=== PATIENT | female | born 1945 | race Caucasian/White ===

== ENCOUNTER 2018-11-24 14:47 | Inpatient (IN) ==
[2018-11-24 16:01] LABS: INFLUENZA A NEGATIVE (NEGATIVE); INFLUENZA B NEGATIVE (NEGATIVE)
--- NOTE | 2018-11-24 17:56 | Diag Imaging Result Doc PS360 ---
EXAM: CHEST-2 VIEWS HISTORY: cough TECHNIQUE: Chest two views COMPARISON: None. FINDINGS: The lungs are well expanded. The heart is not enlarged. The vessels are not distended. There are no infiltrates. No pleural effusions. There is a granuloma in the left lower lobe. Moderate scoliosis. 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 IMPRESSION: No pneumonia. Electronically signed by Kevon Dixon 11/24/2018 5:53 PM
[2018-11-24 18:08] LABS: BASO# 0.02 X1000 (0.0-0.2); BASO% 0.1 % (0.0-0.8); HEMATOCRIT 35.5 % (37.0-47.0); HEMOGLOBIN 12.2 g/dL (12.0-16.0); IMM GRAN# 0.17 X1000 (0.0-0.04); IMM GRAN% 1.2 % (0.0-0.5); LYMPH% 5.6 % (20.5-51.1); MCH 31.6 PG (27-31); MCHC 34.4 g/dL (33-37); MONO% 7.1 % (1.7-9.3); MPV 9.5 FL (7.4-10.4); NEUT# 12.17 X1000 (1.4-6.5); PLT 123 X1000 (130-400); RBC 3.86 XMIL (4.2-5.4); RDW 14.1 % (11.5-14.5); WBC 14.16 X1000 (4.8-10.8)
[2018-11-24 18:23] LABS: ALBUMIN 3.9 g/dL (3.5-5.0); CREATININE 1.5 mg/dL (0.5-0.9); TOTAL BILIRUBIN 1.7 mg/dL (0.20-1.00); TOTAL PROTEIN 6.2 g/dL (6.3-8.3)
[2018-11-24 18:40] LABS: CK INDEX 2.1 (0.0-2.5); CK-MB 7.44 ng/mL (0.0-5.0)
--- NOTE | 2018-11-24 18:47 | PROVIDER DOCUMENTATION ---
This chart was entered by Kira Moody Scribe, acting as scribe for Mehrdad Diaz MD. HPI-General Adult - General Source: patient - History of Present Illness -Gen Adult Nature of Presenting Problems: 72yof with hx of HTN, seizures, and thyroid disease c/o LUE pain, chills, cough , sore throat, sinus congestion/drainage, body aches, headache, and constipation for 3-4 days. She reports she went to a clinic today and was told to come to the ED. She denies fever, nause, vomiting, diarrhea, cp, and sob. The patient's is at bedside. Location of Pain/Injury: reports: upper extremity (LUE) Pain Radiation: reports: no radiation Quality of Pain: reports: aching Severity: reports: mild Onset/Duration: reports: 3 days ago, 4 days ago Timing: reports: still present, intermittent, constant Context/Activities at Onset: reports: none Modifying Factors: improves with: nothing Associated Symptoms: reports: cough, headaches, muscle aches, sinus congestion/ drainage, other (sore throat, LUE pain). denies: chest pain, diarrhea, nausea, shortness of breath, vomiting Similar Symptoms Previously?: No Recently seen or treated by another doctor?: Yes (pt reports seen at a clinic today ) <Mehrdad Diaz - Last Filed: 11/24/18 18:46> <Kalia Brooks - Last Filed: 11/24/18 21:04> - General Chief Complaint: Flu Symptoms Stated Complaint: FEVER/DEHYDRATED/HYPOTENSION Time Seen by Provider: 11/24/18 16:55 Allergies/Adverse Reactions: Patient Allergies Allergy/AdvReac Type Severity Reaction Status Date / Time codeine AdvReac makes pt Verified 11/24/18 14:58 jittery Home Medications: Home Medication List Medication Instructions Recorded Confirmed Last Taken Type Chrom Bryce/Brindal Marni [Garcinia 1 tab PO DAILY 05/07/15 11/08/17 05/10/15 07: 30 History Cambogia Tablet] 1 Diphenhydramine [Benadryl] 25 mg PO QHS 05/07/15 11/08/17 05/10/15 22:30 History 25 Lisinopril/Hydrochlorothiazide 1 each PO DAILY 05/07/15 11/08/17 05/11/15 07:30 History [Lisinopril-Hctz 20-25 mg Tab] 1 Lorazepam 0.25 mg PO HS 05/07/15 11/08/17 05/10/15 22:30 History 0.25 Sertraline [Zoloft] 50 mg PO DAILY 05/07/15 11/08/17 05/11/15 07:30 History 50 Thyroid,Pork [[place] Thyroid] 60 mg PO DAILY 05/07/15 11/08/17 05/11/15 07:30 History 60 Vits A,C,E/Lutein/Minerals 1 each PO DAILY 05/07/15 11/08/17 05/10/15 07:30 History [Ocuvite with Lutein Tablet] 1 Prednisone 20 mg PO DAILY #5 tab 11/08/17 Unknown Rx Tramadol HCl [Ultram] 50 mg PO Q6-8H PRN PRN #20 tab 11/08/17 Unknown Rx Review of Systems - Adult - REVIEW OF SYSTEMS - ADULT Constitutional: reports: chills. denies: fever Eyes: denies: discharge, dry eyes Ears, Nose, Mouth & Throat: reports: throat pain, other (sinus congestion/ drainage). denies: ear discharge, ear pain Cardiovascular: denies: chest pain, palpitations Respiratory: reports: cough. denies: shortness of breath Gastrointestinal: reports: constipation. denies: abdominal pain, diarrhea, nausea, vomiting Genitourinary: denies: dysuria, hematuria Musculoskeletal: reports: muscle aches (body aches), other (LUE pain). denies: back pain Integumentary: reports: no symptoms reported Neurological: reports: headache/migraines. denies: dizziness/vertigo Psychiatric: reports: no symptoms reported Endocrine: reports: no symptoms reported Hematologic/Lymphatic: reports: no symptoms reported Allergic/Immunologic: reports: no symptoms reported All Other Systems: Reviewed and Negative <Mehrdad Diaz - Last Filed: 11/24/18 18:46> Past History - Adult - PAST MEDICAL HISTORY-ADULT Review of Records: reports: Old Records Reviewed, Nursing Assessment Review, Medications Reviewed Major Childhood Illnesses: reports: denies history Cardiovascular: reports: HTN Endocrine/Immune: reports: thyroid disorder - PRIOR SURGERIES/PROCEDURES Surgical/Procedure History: reports: orthopedic (extremity) - IMMUNIZATION STATUS Childhood Immunizations: See Nurse Assessment Flu Vaccine: See Nurse Assessment - FAMILY HISTORY Family History: reviewed, not pertinent - SOCIAL HISTORY Smoking: non-smoker Substance Use: alcohol Living Situation: family <Mehrdad Diaz - Last Filed: 11/24/18 18:46> Physical Exam-General - PHYSICAL EXAM-ADULT Initial Vital Signs Reviewed: Yes - CONSTITUTIONAL General Appearance: alert, no apparent distress - EYES Eyes: PERRL/EOMI, pink conjunctivae - HEAD, EARS, NOSE, MOUTH & THROAT HENMT: moist mucous membranes, TMs normal - NECK Neck: non-tender, supple - RESPIRATORY Respiratory: chest non-tender, lungs clear, normal breath sounds, no pleuratic chest pain, no respiratory distress, no accessory muscle use - CARDIOVASCULAR Cardiovascular: regular rate, rhythm, no murmur - MUSCULOSKELETAL Extremity: no pedal edema, tenderness (LUE), other (limited range of motion LUE) - SKIN Integumentary: normal color, warm/dry - NEUROLOGIC Neurologic: grossly normal, no motor/sensory deficits - PSYCHIATRIC Psych/Mental Status: normal mood/affect, normal thought content, normal thought process, oriented x 3 <Mehrdad Diaz - Last Filed: 11/24/18 18:46> Progress - PLAN OF CARE/RESULTS Progress/Plan/Lab Results: Vital Signs - 8 hr 11/24/18 14:53 Temperature 97.4 F L Pulse Rate 83 Respiratory Rate 16 Blood Pressure 99/59 O2 Sat by Pulse Oximetry 100 Laboratory Results - last 24 hr 11/24/18 15:00 Influenza A (Rapid) NEGATIVE Influenza B (Rapid) NEGATIVE Orders Category Date Time Status Flu [INFLUENZA SCREEN PL] Stat Lab 11/24/18 15:00 Completed <Mehrdad Diaz - Last Filed: 11/24/18 18:46> - PLAN OF CARE/RESULTS Progress/Plan/Lab Results: Vital Signs - 8 hr 11/24/18 14:53 Temperature 97.4 F L Pulse Rate 83 Respiratory Rate 16 Blood Pressure 99/59 O2 Sat by Pulse Oximetry 100 Laboratory Results - last 24 hr 11/24/18 11/24/18 11/24/18 15:00 17:55 17:55 WBC 14.16 H RBC 3.86 L Hgb 12.2 Hct 35.5 L MCV 92.0 MCH 31.6 H MCHC 34.4 RDW Std Deviation 14.1 Plt Count 123 L MPV 9.5 Immature Gran % (Auto) 1.2 H Neut % (Auto) 86.0 H Lymph % (Auto) 5.6 L [place] % (Auto) 7.1 Eos % (Auto) 0.0 Baso % (Auto) 0.1 Immature Gran # (Auto) 0.17 H Neut # (Auto) 12.17 H Lymph # (Auto) 0.80 L [place] # (Auto) 1.00 H Eos # (Auto) 0.00 Baso # (Auto) 0.02 Segmented Neutrophils Not Reportable Sodium 134 L Potassium 3.0 L Chloride 91 L Carbon Dioxide 27 Anion Gap 17 BUN 30 H Creatinine 1.5 H Estimated GFR/1.73 m2 34 BUN/Creatinine Ratio 20 Glucose 94 Calculated Osmolality 274 Calcium 9.0 Total Bilirubin 1.70 H AST 339 H ALT 300 H Alkaline Phosphatase 314 H Creatine Kinase Creatine Kinase Index CK-MB (CK-2) Troponin T Total Protein 6.2 L Albumin 3.9 Globulin 2.0 Albumin/Globulin Ratio 2.0 Plasma Lactate Urine Source Urine Color Urine Clarity Urine pH Ur Specific [place] Urine Protein Urine Ketones Urine Blood Urine Nitrite Urine Bilirubin Urine Urobilinogen Urine Microscopic RBC Urine WBC Urine Microscopic WBC Ur Epithelial Cells Urine Crystals Urine Bacteria Urine Casts Urine Yeast Urine Glucose Influenza A (Rapid) NEGATIVE Influenza B (Rapid) NEGATIVE Group A Strep Rapid 11/24/18 11/24/18 11/24/18 17:55 17:55 17:55 WBC RBC Hgb Hct MCV MCH MCHC RDW Std Deviation Plt Count MPV Immature Gran % (Auto) Neut % (Auto) Lymph % (Auto) [place] % (Auto) Eos % (Auto) Baso % (Auto) Immature Gran # (Auto) Neut # (Auto) Lymph # (Auto) [place] # (Auto) Eos # (Auto) Baso # (Auto) Segmented Neutrophils Sodium Potassium Chloride Carbon Dioxide Anion Gap BUN Creatinine Estimated GFR/1.73 m2 BUN/Creatinine Ratio Glucose Calculated Osmolality Calcium Total Bilirubin AST ALT Alkaline Phosphatase Creatine Kinase 359 H Creatine Kinase Index 2.1 CK-MB (CK-2) 7.44 H Troponin T 0.080 Total Protein Albumin Globulin Albumin/Globulin Ratio Plasma Lactate 1.5 Urine Source Urine Color Urine Clarity Urine pH Ur Specific [place] Urine Protein Urine Ketones Urine Blood Urine Nitrite Urine Bilirubin Urine Urobilinogen Urine Microscopic RBC Urine WBC Urine Microscopic WBC Ur Epithelial Cells Urine Crystals Urine Bacteria Urine Casts Urine Yeast Urine Glucose Influenza A (Rapid) Influenza B (Rapid) Group A Strep Rapid 11/24/18 11/24/18 18:25 18:25 WBC RBC Hgb Hct MCV MCH MCHC RDW Std Deviation Plt Count MPV Immature Gran % (Auto) Neut % (Auto) Lymph % (Auto) [place] % (Auto) Eos % (Auto) Baso % (Auto) Immature Gran # (Auto) Neut # (Auto) Lymph # (Auto) [place] # (Auto) Eos # (Auto) Baso # (Auto) Segmented Neutrophils Sodium Potassium Chloride Carbon Dioxide Anion Gap BUN Creatinine Estimated GFR/1.73 m2 BUN/Creatinine Ratio Glucose Calculated Osmolality Calcium Total Bilirubin AST ALT Alkaline Phosphatase Creatine Kinase Creatine Kinase Index CK-MB (CK-2) Troponin T Total Protein Albumin Globulin Albumin/Globulin Ratio Plasma Lactate Urine Source CLEAN CATCH Urine Color NAYAN Urine Clarity VERY CLOUDY A Urine pH 5.0 Ur Specific [place] 1.015 Urine Protein 2+(100 mg/dL) A Urine Ketones TRACE Urine Blood 1+ A Urine Nitrite NEGATIVE Urine Bilirubin 2+ A Urine Urobilinogen 8 Urine Microscopic RBC TNTC A Urine WBC 2+ A Urine Microscopic WBC TNTC A Ur Epithelial Cells >10 A Urine Crystals NONE SEEN Urine Bacteria 4+ Urine Casts NONE SEEN Urine Yeast NONE SEEN Urine Glucose NEGATIVE Influenza A (Rapid) Influenza B (Rapid) Group A Strep Rapid NEGATIVE Orders Category Date Time Status Straight Catheterization ORDERED Care 11/24/18 20:49 Active CHEST-2 VIEWS [RAD] Stat Exams 11/24/18 16:57 Completed US ABDOMEN-COMPLETE [US] Stat Exams 11/24/18 18:29 Completed BLOOD CULTURE [BLDCUL] Stat Lab 11/24/18 17:58 Ordered CBC WITH ELECTRONIC DIFF [HEME] Stat Lab 11/24/18 17:55 Completed CK PROFILE [SP CHEM] Stat Lab 11/24/18 17:55 Completed COMPREHENSIVE METABOLIC PANEL [CHEM] Stat Lab 11/24/18 17:[address] Stat Lab 11/24/18 18:25 Completed Flu [INFLUENZA SCREEN PL] Stat Lab 11/24/18 15:00 Completed LACTATE, PLASMA [CHEM] Stat Lab 11/24/18 17:55 Completed TROPONIN T Stat Lab 11/24/18 17:[address] W/POSS RFLX CULT [URINALYSIS] Stat Lab 11/24/18 18:25 Completed URINE CULTURE [RM] Routine Lab 11/24/18 19:08 Ordered Result Diagrams: 11/24/18 17:55 11/24/18 17:55 - REASSESSMENT Reassessment #1 Time Reassessed: 20:59 Status: unchanged (LFTs are consistet with acute hepatitis, US is negative for obstructive disease) - ULTRASOUND (By Radiology) 1 US Study: Abdomen (CBD 8 mm, post cholecystectomy) - CONSULTS/PCP/HOSPITALIST Notification #1 *Consult/PCP/Hospitalist*: Dr Moralez Time Discussed: 21:03 Consult Disposition: Admit <Kalia Brooks - Last Filed: 11/24/18 21:04> Departure - Departure Certified Medical Emergency: Emergent <Mehrdad Diaz - Last Filed: 11/24/18 18:46> - Departure Date of Disposition Decision: 11/24/18 Time of Disposition Decision: 21:03 Certified Medical Emergency: Emergent - Critical Care Note This patient required my direct & personal management of CC.: No <Kalia Brooks - Last Filed: 11/24/18 21:04> - Departure DIAGNOSIS: Hepatitis Disposition: HOME 01 Condition: Stable Additional Freetext Instructions: ED Follow Up Instructions: You have been treated by a care provider in the Emergency Department. These instructions are being provided to you so you can have an understanding of how to care for yourself upon discharge. Upon discharge from the Emergency Department, you are responsible for making arrangements for follow-up care by a physician of your choice. Take all prescribed medications as directed. Return to the Emergency Department immediately for any new or worsening symptoms. You may call the Physician Referral phone number at [phone] to obtain a list of Physicians who are taking new patients. Referrals and Follow-Ups: Estee Wills [Primary Care Provider] - Attestation - Physician/ MARIA DOLORES Attestation Patient care was provided by Advanced Practice Provider:: No The physician spent face to face time with patient:: Yes Advanced Practice Provider documentation review:: Supervising physician onsite and consulted in the evaluation and care of this patient. The physician did have a face to face encounter with the patient. <Mehrdad Diaz - Last Filed: 01/26/19 18:46> - Physician/ MARIA DOLORES Attestation The physician spent face to face time with patient:: Yes Advanced Practice Provider documentation review:: Supervising physician onsite and consulted in the evaluation and care of this patient. The physician did have a face to face encounter with the patient. <Kalia Brooks. - Last Filed: 11/24/18 21:04> This chart was documented by the indicated scribe, (Kira Moody, Scribe) and accurately reflects the services I performed and decisions made by me, Mehrdad Diaz MD, as attested by the provider's signature.
[2018-11-24 18:58] LABS: BILIRUBIN URINE 2+ (NEGATIVE); BLOOD URINE 1+ (NEGATIVE); CLARITY VERY CLOUDY (CLEAR); COLOR AMBER; GLUCOSE URINE NEGATIVE (NEGATIVE); KETONE URINE TRACE mg/dL (NEGATIVE); LEUKOCYTES URINE 2+ (NEGATIVE); NITRITE URINE NEGATIVE (NEGATIVE); PROTEIN URINE 2+(100 mg/dL) mg/dL (NEGATIVE); SP GRAVITY URINE 1.015; UROBILINOGEN URINE 8 mg/dL
[2018-11-24 19:06] LABS: URINE SOURCE CLEAN CATCH
[2018-11-24 19:08] LABS: URINE BACTERIA 4+ /HFP; URINE CAST NONE SEEN /LPF; URINE CRYSTAL NONE SEEN /HPF; URINE EPITHELIAL CELLS >10 /HPF (<10); URINE RBC TNTC /HPF (<10); URINE WBC TNTC /HPF (<10); URINE YEAST NONE SEEN /HPF
--- NOTE | 2018-11-24 20:18 | Diag Imaging Result Doc PS360 ---
EXAM: US ABDOMEN-COMPLETE HISTORY: abn lfts TECHNIQUE: Abdominal ultrasound COMPARISON: None. FINDINGS: Normal pancreas. No abdominal aortic aneurysm. Mild atherosclerosis. Normal inferior vena cava. No focal hepatic abnormality although there are scattered granuloma. Normal right kidney. No hydronephrosis. The common bile duct measures 8 mm. The gallbladder has been removed. Normal left kidney. No hydronephrosis. There are scattered splenic granuloma. No ascites. IMPRESSION: Cholecystectomy Electronically signed by Kevon Dixon 11/24/2018 8:16 PM
[2018-11-24 22:12] LABS: BILIRUBIN URINE 2+ (NEGATIVE); BLOOD URINE 1+ (NEGATIVE); CLARITY SL. CLOUDY (CLEAR); COLOR AMBER; GLUCOSE URINE NEGATIVE (NEGATIVE); KETONE URINE TRACE mg/dL (NEGATIVE); LEUKOCYTES URINE 2+ (NEGATIVE); NITRITE URINE NEGATIVE (NEGATIVE); PROTEIN URINE 2+(100 mg/dL) mg/dL (NEGATIVE); SP GRAVITY URINE 1.015; UROBILINOGEN URINE 4 mg/dL
[2018-11-24 22:13] LABS: URINE SOURCE CATH
[2018-11-24 22:14] LABS: URINE BACTERIA 3+ /HFP; URINE EPITHELIAL CELLS <10 /HPF (<10)
[2018-11-24] MEDS: ZOFRAN IV PRN (23:38)
[2018-11-24] MEDS: MORPHINE IV PRN (23:39)
[2018-11-25] MEDS: NS 1,000 ML IV SCH ×2 (01:02→09:46)
[2018-11-25] MEDS: ZOSYN 3.375 GM in NS 50 ML IV SCH ×4 (01:02→20:30)
[2018-11-25] MEDS: ZOFRAN IV PRN (03:56)
[2018-11-25] MEDS: MORPHINE IV PRN ×2 (03:56→12:04)
[2018-11-25 07:14] LABS: BASO# 0.01 X1000 (0.0-0.2); BASO% 0.1 % (0.0-0.8); EOS# 0.02 X1000 (0.0-0.7); EOS% 0.2 % (0.0-10.0); HEMATOCRIT 33.6 % (37.0-47.0); IMM GRAN# 0.06 X1000 (0.0-0.04); IMM GRAN% 0.7 % (0.0-0.5); LYMPH# 0.48 X1000 (1.2-3.4); LYMPH% 5.2 % (20.5-51.1); MCH 30.4 PG (27-31); MCHC 32.7 g/dL (33-37); MCV 92.8 FL (81-99); MONO# 0.37 X1000 (0.11-0.59); MPV 9.8 FL (7.4-10.4); NEUT# 8.26 X1000 (1.4-6.5); NEUT% 89.8 % (42.2-75.2); PLT 106 X1000 (130-400); RBC 3.62 XMIL (4.2-5.4); RDW 14.2 % (11.5-14.5)
[2018-11-25 07:33] LABS: ALBUMIN 2.9 g/dL (3.5-5.0); CALCIUM 8.3 mg/dL (8.8-10.2); CREATININE 1.3 mg/dL (0.5-0.9); POTASSIUM 2.9 mmol/L (3.5-5.1); TOTAL BILIRUBIN 1.6 mg/dL (0.20-1.00); TOTAL PROTEIN 5.7 g/dL (6.3-8.3)
[2018-11-25 07:37] LABS: AMYLASE 28 U/L (20-200); LIPASE 12 U/L (13-60)
[2018-11-25 07:52] LABS: EOS 1 % (1-10); LYMPHS 5 % (21-51); MONO 4 % (1-9); SEGS 90 % (42-75)
[2018-11-25] MEDS ORDERED: THYROID PO SCH (09:00)
[2018-11-25] MEDS ORDERED: ZOLOFT PO SCH (09:00)
[2018-11-25] MEDS ORDERED: KLOR-CON PO ONE ×2 (09:20→14:00)
--- NOTE | 2018-11-25 12:24 | HISTORY AND PHYSICAL ---
CHIEF COMPLAINT: Left shoulder and arm pain along with generalized body aches. HISTORY OF PRESENT ILLNESS: This is a 74-year-old female with a history of hypertension, seizures, and thyroid disease. She presented to the emergency room complaining of 4 days of generalized body aches with a sore throat and sinus drainage, as well as constipation. She was evaluated at an outlying clinic and told to present to the emergency room. She denied a productive cough, any fever, nausea, vomiting, diarrhea, chest pain, or shortness of breath. She also complained of left shoulder pain. She stated this started 2 or 3 weeks ago and she thinks it was when she was clearing her yard and dragging a large limb. PAST MEDICAL HISTORY: Hypothyroid, hypertension, seizure disorder. PAST SURGICAL HISTORY: Hemorrhoidectomy, bilateral cataracts, right shoulder surgery. SOCIAL HISTORY: She denies tobacco or illicit drug use. She does drink alcohol. ALLERGIES: Codeine which makes her jittery. HOME MEDICATIONS: Garcinia Cambogia, Valium, Benadryl, lisinopril hydrochlorothiazide, Zoloft, [place] Thyroid, Ultram. REVIEW OF SYSTEMS: Discussed with the patient with pertinent positives stated in the HPI. She denied any syncope or dizziness, any chest pain or palpitations, a productive cough, any fevers, any shortness of breath, PND, orthopnea, any nausea, vomiting, diarrhea, any black or bloody stools, any hematuria, dysuria, frequency, or urgency. PHYSICAL EXAMINATION: GENERAL: This is a 72-year-old female who is sitting up in the bed, eating breakfast, in no distress. VITAL SIGNS: Blood pressure is 116/57, with a heart rate of 101, respirations are 16, temperature is 100.1 degrees, with room air saturations being 99%. EYES: Pupils are equal, round, react to light. EOMs are intact. Sclerae are anicteric. HENT: Head is normocephalic, atraumatic. Mucous membranes are moist. NECK: Supple with trachea midline. CARDIOVASCULAR: Regular rate and rhythm. S1 and S2 appreciated. No murmurs noted. She has no lower extremity edema, with peripheral pulses palpable x4 extremities. MUSCULOSKELETAL: Left upper extremity is limited due to pain. SKIN: Warm and dry. NEUROLOGIC: She is alert and oriented x3. LABS: WBC is 14.1, with a hemoglobin of 12.2, hematocrit 35.5, and platelets of 123,000. Sodium 134, potassium 3, BUN 30, creatinine 1.5, with a glucose of 94. Total bilirubin is 1.7 with an AST of 339, ALT of 300, alkaline phosphatase 314, and a total CPK of 359. Her CK-MB is 7.44. Troponin is negative. A clean-catch urinalysis is consistent with contamination. A repeated cath specimen revealed 1+ blood with 2+ bilirubin, 10-20 microscopic red blood cells and white blood cells, and 3+ bacteria. Urine culture is pending. Throat culture is pending. Blood cultures x2 are pending. Abdominal ultrasound reveals cholecystectomy, common bile duct measures 8 mm, gallbladder has been removed. Chest x-ray reveals no pneumonia. ASSESSMENT AND PLAN: 1. Possible urinary tract infection. Urine culture is pending. 2. Acute hepatitis. Hepatitis panel is pending. Of note, the patient has been taking Garcinia Cambogia. She states she has been taking it quite some time, but she may have increased her dose. So, we will hold this medication and any other liver toxic medications. Will repeat a profile this morning and daily. 3. Acute kidney injury. We will hydrate and trend her labs and hold any renal toxic medications. 4. Hypertension. Will identify her medications and continue as appropriate. 5. Hypothyroid. We will check a TSH. 6. Leukocytosis. Most likely secondary to urinary tract infection. We will start Zosyn for coverage for UTI and follow. 7. Left shoulder pain. We will x-ray her left shoulder. 8. Alcohol abuse, she will not say when her last drink was or how much she drinks, will monitor for withdrawl/DTs Further treatments pending hospital course. Dictated by FRED Marino for Hood Moralez MD This chart was documented by, FRED Marino and accurately reflects the services performed, treatment plan and medical decisions as attested by the providers signature Hood Moralez MD. cc: FRED Marino MD [facility]
--- NOTE | 2018-11-25 13:28 | Diag Imaging Result Doc PS360 ---
EXAM: SHOULDER-LEFT - 11/25/2018 HISTORY: pain, TECHNIQUE: Left shoulder two views COMPARISON: None. FINDINGS: There are degenerative changes, which are most prominent at the acromioclavicular joint. The humeral head is possibly high riding, which can be seen with chronic rotator cuff tear. There is no fracture or dislocation identified. IMPRESSION: Degenerative changes, most prominent at the acromioclavicular joint. Possible high riding humeral head, which can be seen with chronic rotator cuff tear. No evidence of fracture or dislocation. Electronically signed by Ronak Dunlap 11/25/2018 1:26 PM
[2018-11-25] MEDS ORDERED: SALINE LOCK IV FLUID XX ONE (15:10)
[2018-11-25] MEDS ORDERED: ROBAXIN PO PRN (15:10)
[2018-11-25] MEDS ORDERED: ATARAX PO PRN (15:10)
[2018-11-25] MEDS ORDERED: BENTYL PO PRN (15:10)
[2018-11-25] MEDS ORDERED: M.V.I.-12 10 ML, FOLIC ACID 1 MG, MAGNESIUM SULFATE 1 GM, THIAMINE 100 MG in NS 1,000 ML IV ONE (16:00)
[2018-11-25] MEDS ORDERED: MORPHINE IV PRN (16:51)
[2018-11-25] MEDS ORDERED: ZOFRAN IV PRN (16:51)
[2018-11-25] MEDS ORDERED: NS 1,000 ML IV SCH (17:00)
[2018-11-25] MEDS ORDERED: LIBRIUM PO SCH ×2 (17:00→18:00)
[2018-11-25] MEDS ORDERED: OFIRMEV 1000 MG/ISOTONIC SOLN 1,000 MG/100 ML BOTTLE IV PRN (18:06)
--- NOTE | 2018-11-25 18:28 | HISTORY AND PHYSICAL ---
ADDENDUM TO HISTORY AND PHYSICAL: This is a 72-year-old female who is admitted with fever, dehydration, hypokalemia and urinary tract infection, along with transaminasemia. She has been started on Zosyn intravenously along with morphine sulfate on as-needed basis for pain and IV fluids. I saw the patient [id number], and fully agree with the assessment and plan of nurse practitioner Yvette Torres. cc: Hood Moralez MD
[2018-11-25] MEDS ORDERED: NS 1,000 ML IV ONE ×2 (20:28→22:56)
[2018-11-25] MEDS: PROTONIX IV SCH (20:30)
[2018-11-25] MEDS ORDERED: ATIVAN IV PRN (20:33)
[2018-11-25] MEDS ORDERED: TYLENOL PO PRN (20:56)
[2018-11-25 21:29] LABS: INR 1.27; PROTIME 16.5 Seconds (11.0-16.0)
[2018-11-25 21:31] LABS: PTT 45.5 Seconds (22.3-41.8)
[2018-11-25 21:42] LABS: CK-MB 4.14 ng/mL (0.0-5.0)
--- NOTE | 2018-11-25 22:04 | EKG Report ---
Test Performed on : 11/25/2018 10:02:53 PM Test Reason : TROPONIN ELEVATION Blood Pressure : / mmHG Vent. Rate : 078 BPM Atrial Rate : 078 BPM P-R Int : 136 ms QRS Dur : 070 ms QT Int : 438 ms P-R-T Axes : 060 -09 033 degrees QTc Int : 499 ms Normal sinus rhythm. Prolonged QT Abnormal ECG No previous ECGs available Confirmed by Mehrdad Diaz MD ([id number]) on 12/02/2018 9:50:27 AM
[2018-11-25] MEDS ORDERED: LEVOPHED 8 MG in D5 1/2 NS 250 ML IV SCH (23:00)
[2018-11-26] MEDS: THYROID PO SCH ×3 (01:38→20:34)
[2018-11-26] MEDS: LIBRIUM PO SCH ×3 (02:00→17:56)
[2018-11-26] MEDS: ZOSYN 3.375 GM in NS 50 ML IV SCH ×4 (04:12→20:35)
[2018-11-26 07:26] LABS: AGAP 14; ALBUMIN 2.4 g/dL (3.5-5.0); ALKALINE PHOSPHATASE 192 U/L (32-104); BUN 23 mg/dL (8-22); CHLORIDE 110 mmol/L (98-107); COSMO 286; CREATININE 0.9 mg/dL (0.5-0.9); ESTIMATED GFR > 60; GLUCOSE 89 mg/dL (70-104); GOT 59 U/L (10-30); GPT 97 U/L (10-36); POTASSIUM 3.9 mmol/L (3.5-5.1); SODIUM 142 mmol/L (136-145); TCO2 19 mmol/L (25-35); TOTAL PROTEIN 4.9 g/dL (6.3-8.3)
[2018-11-26 07:30] LABS: BASO# 0.01 X1000 (0.0-0.2); BASO% 0.2 % (0.0-0.8); EOS# 0.01 X1000 (0.0-0.7); EOS% 0.2 % (0.0-10.0); HEMATOCRIT 31.5 % (37.0-47.0); HEMOGLOBIN 10.2 g/dL (12.0-16.0); IMM GRAN# 0.02 X1000 (0.0-0.04); IMM GRAN% 0.3 % (0.0-0.5); LYMPH% 6.9 % (20.5-51.1); MCH 30.6 PG (27-31); MCHC 32.4 g/dL (33-37); MCV 94.6 FL (81-99); MONO# 0.39 X1000 (0.11-0.59); MONO% 6.8 % (1.7-9.3); MPV 9.6 FL (7.4-10.4); NEUT# 4.93 X1000 (1.4-6.5); NEUT% 85.6 % (42.2-75.2); PLT 96 X1000 (130-400); RBC 3.33 XMIL (4.2-5.4); RDW 14.5 % (11.5-14.5); WBC 5.76 X1000 (4.8-10.8)
[2018-11-26] MEDS: ZOLOFT PO SCH (08:36)
[2018-11-26 09:20] LABS: LYMPHS 10 % (21-51); MONO 8 % (1-9); SEGS 82 % (42-75)
[2018-11-26] MEDS ORDERED: ULTRAM PO PRN ×2 (11:56→12:21)
[2018-11-26] MEDS ORDERED: SALINE LOCK IV FLUID XX ONE (12:24)
--- NOTE | 2018-11-26 12:43 | PROGRESS NOTE ---
DATE: 11/26/2018 SUBJECTIVE: Patient has no focal complaints. OBJECTIVE: Vital signs: Blood pressure is 131/68, heart rate of 87, respiratory rate 20, temperature 99.7 degrees, 96% on 2 L. Cardiovascular: Regular rate and rhythm. Pulmonary: Bilateral breath sounds. Clear to auscultation. GI: Soft, nontender, nondistended. Bowel sounds were positive. LABORATORY: White count 5, hemoglobin and hematocrit 10 and 31, platelets of 96,000. BUN and creatinine are down to 23 and 0.9. AST and ALT are down to 59 and 97, alkaline phosphatase of 192. Troponin was mildly elevated. PROBLEM LIST: 1. Encephalopathy, likely multifactorial. She seems to be improving. She may have metabolic related to infection, acute kidney injury and acute hepatitis. We will continue to monitor closely. 2. Acute hepatitis, unclear etiology. She has been on Garcinia cambogia which is an herbal supplement, but I think more likely since she drinks 5 to 6 shots of alcohol a day, vodka apparently, I think more likely this is related to alcohol. I will calculated her discriminant function, but I do not think she meets criteria for prednisone. Her numbers are slowly improving and her abdominal ultrasound is unremarkable. 3. Acute kidney injury, better with fluids. 4. Alcohol withdrawal syndrome. She is on a Librium taper. We will continue to monitor. 5. Hypothyroidism. We will continue her thyroid supplements, her Synthroid. Her TSH level was high. I will check a free T4 and follow. 6. Fever, most likely E. coli urinary tract infection. She is on Zosyn which it is sensitive to Rocephin. It should be sufficient though. I am going to keep her on the Zosyn. Another urine culture that is pending. We will continue to follow closely. DISPOSITION: Pending her clinical status, I think she is probably okay to go to the floor. cc: Maksim Venegas MD
--- NOTE | 2018-11-26 13:02 | Diag Imaging Result Doc PS360 ---
EXAM: CHEST-PORTABLE HISTORY: hypoxia TECHNIQUE: Portable chest single view COMPARISON: 11/24/2017 FINDINGS: Atelectasis or infiltrates have developed primarily in the mid and lower right lung since the prior exam. Poor inspiratory effort. Small right pleural effusion. There is a granuloma in the left base. 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 IMPRESSION: Development of atelectasis or infiltrates in the right lung. Follow-up PA and lateral recommended. Electronically signed by Kevon Dixon 11/26/2018 1:00 PM
[2018-11-26] MEDS: POTASSIUM CHLORIDE 20 MEQ, MAGNESIUM SULFATE 2 GM, THIAMINE 100 MG, FOLIC ACID 1 MG, M.... IV SCH ×6 (14:09)
[2018-11-26] MEDS: NS 1,000 ML IV SCH (14:54)
--- NOTE | 2018-11-26 15:45 | CARDIOLOGY CONSULTATION ---
DATE: 11/26/2018 The patient was admitted with fever, generalized body aches, has urinary tract infection. The patient has 1 abnormal cardiac enzyme. 72-year-old lady with history of hypertension, seizure disorder, thyroid disease presented to the emergency room with generalized body ache, sore throat and sinus drainage. She was evaluated in outpatient clinic subsequently came to the emergency room. She said for the last 2 to 3 weeks she has not felt well. From a cardiac standpoint, she denies chest pain suggestive of angina. She has undergone a stress test and echocardiogram by her process engineering manager in [place], Dr. Sloan and per patient the tests were normal. This was done recently. REVIEW OF SYSTEM: 14-point review of systems was done. GI: There is no history of hematemesis or melena. Central nervous system: No focal weakness to suggest a CVA or TIA. Genitourinary: There is no hematuria. PAST MEDICAL HISTORY: 1. Hypothyroid. 2. Hypertension. 3. Seizure disorder. 4. Hemorrhoidectomy. 5. Bilateral cataract surgery. 6. Right shoulder surgery. 7. There is history of alcohol abuse. Drinks 4 to 5 shots of vodka. 8. She denies tobacco or illicit drug. ALLERGIES: She is allergic to codeine. HOME MEDICATIONS: Lisinopril/hydrochlorothiazide, Zoloft, Synthroid, Ultram. PHYSICAL EXAMINATION: Blood pressure 116/57.Cardiovascular: Was normal. First and second heart sounds were heard. There was no S3 gallop. Respiratory: Normal air entry. There is no crepitations or rhonchi. Abdomen: Soft, nontender. There was no guarding or rigidity. Bowel sounds were heard. Central nervous system: Alert, was moving all 4 extremities. Examination of extremities revealed no pedal edema. HEENT: Atraumatic, pupils were reacting to light. LAB: WBC 14.1, hemoglobin 12.2, hematocrit 35, platelet count of 123,000, sodium 134, potassium 3, BUN 30, creatinine 1.5, glucose 97, bilirubin 1.7. Urine examination 1+ blood, 2+ bilirubin, 10 to 20 microscopic RBCs, white blood cells and bacteria, urine culture pending. Blood cultures pending. Electrocardiogram revealed normal sinus rhythm. Normal EKG. Laboratory examination revealed troponin 0.08, CK 158, 1 troponin was 0.12. When she was admitted her creatinine was 1.3 with a BUN of 34. Today creatinine is better at 0.9 and a BUN of 23. ASSESSMENT AND PLAN: 1. Ms Tracee Love is a 72-year-old lady who has history of hypertension, seizure disorder, history of alcohol abuse. Was admitted with not feeling well. From a cardiac standpoint she does not complain of chest pain. She had a stress test and echocardiogram done recently with a process engineering manager in [place]. We will request records. 2. Electrocardiogram was normal. 3. One troponin was abnormal however the subsequent troponin was negative and her renal function was abnormal. This could be related to that. 4. She drinks about 5 to 6 shots of vodka on a daily basis and has abnormal liver function tests and her liver function is improving. 5. Acute kidney injury improving. 6. Alcohol withdrawal syndrome. She is on Librium taper. 7. Hypothyroidism. Continue with medications as planned. 8. Fever most likely secondary to Escherichia coli. She is on Zosyn. I have not made any other changes to her management. Thank you for the consult. cc: Elier Lemus MD [facility]
--- NOTE | 2018-11-26 19:42 | ECHO REPORT ---
ORDER DATE: 11/26/2018 INDICATION: Possible myocardial infarction. M-MODE MEASUREMENTS: Left ventricle end diastole: 3.7 cm. Left ventricle end systole: 2.0 cm. Posterior wall: 1.0 cm. Interventricular septum: 1.2 cm. Left atrium: 3.6 cm. Aortic root: 2.6 cm. SUMMARY OF 2-DIMENSIONAL IMAGIN. The left ventricle is hyperdynamic. Ejection fraction is 75% to 80%. Left atrium is mildly enlarged. 2. The aortic valve shows dense calcification of the left coronary cusp. Aortic valve area by planimetry is 2.2 cm square. Maximum gradient across this valve is 33 mmHg, mean gradient is 23 mmHg, which would suggest moderate degree of stenosis, however the gradient may relate to the abnormal circumference of the valve with the hyperdynamic state of the patient. There is definitely no significant degree of aortic stenosis. 3. The mitral valve shows a mild degree of regurgitation. Pulsed wave Doppler of mitral inflow is normal. The tissue Doppler of septal and lateral mitral annulus averages 7 cm. There is no diastolic dysfunction. 4. The tricuspid valve shows a moderate degree of regurgitation. Pulmonary pressure is estimated at 60 mmHg. There is moderate pulmonary hypertension. The pulmonic valve is unremarkable. 5. There is no pericardial effusion. 6. Definity was added to optimize visualization of the endocardium. Clinical correlation is recommended. cc: MD Maksim Andrade MD
[2018-11-26] MEDS: SODIUM CHLORIDE 0.9% INJ SCH (20:34)
[2018-11-26] MEDS: PROTONIX IV SCH (20:34)
[2018-11-26] MEDS: TYLENOL PO PRN (21:40)
[2018-11-27] MEDS: NS 1,000 ML IV SCH ×4 (00:14→21:57)
[2018-11-27] MEDS: LIBRIUM PO SCH ×2 (00:14→11:14)
[2018-11-27] MEDS: ZOSYN 3.375 GM in NS 50 ML IV SCH ×4 (02:34→21:28)
[2018-11-27 06:06] LABS: BASO# 0.01 X1000 (0.0-0.2); BASO% 0.2 % (0.0-0.8); EOS# 0.07 X1000 (0.0-0.7); EOS% 1.2 % (0.0-10.0); HEMATOCRIT 31.3 % (37.0-47.0); HEMOGLOBIN 10.2 g/dL (12.0-16.0); IMM GRAN# 0.05 X1000 (0.0-0.04); IMM GRAN% 0.9 % (0.0-0.5); LYMPH# 0.62 X1000 (1.2-3.4); LYMPH% 10.7 % (20.5-51.1); MCH 30.4 PG (27-31); MCHC 32.6 g/dL (33-37); MCV 93.2 FL (81-99); MONO# 0.59 X1000 (0.11-0.59); MONO% 10.1 % (1.7-9.3); MPV 9.5 FL (7.4-10.4); NEUT# 4.48 X1000 (1.4-6.5); NEUT% 76.9 % (42.2-75.2); PLT 100 X1000 (130-400); RBC 3.36 XMIL (4.2-5.4); RDW 14.2 % (11.5-14.5); WBC 5.82 X1000 (4.8-10.8)
[2018-11-27 06:30] LABS: AGAP 10; ALBUMIN 2.4 g/dL (3.5-5.0); ALKALINE PHOSPHATASE 197 U/L (32-104); BUN 9 mg/dL (8-22); CALCIUM 8.5 mg/dL (8.8-10.2); CHLORIDE 108 mmol/L (98-107); COSMO 279; CREATININE 0.7 mg/dL (0.5-0.9); ESTIMATED GFR > 60; GLUCOSE 123 mg/dL (70-104); GOT 35 U/L (10-30); GPT 72 U/L (10-36); MAGNESIUM 2.2 mg/dL (1.5-2.7); POTASSIUM 3.5 mmol/L (3.5-5.1); SODIUM 140 mmol/L (136-145); TCO2 22 mmol/L (25-35); TOTAL PROTEIN 5.3 g/dL (6.3-8.3)
[2018-11-27] MEDS: TYLENOL PO PRN ×2 (08:23→16:05)
[2018-11-27] MEDS: THYROID PO SCH ×2 (08:23→21:29)
[2018-11-27] MEDS: ZOLOFT PO SCH (08:24)
--- NOTE | 2018-11-27 10:58 | Diag Imaging Result Doc PS360 ---
EXAM: CT ABD/PELVIS W/PO AND IV CON HISTORY: weight loss, cachexia, dysphagia TECHNIQUE: CT abdomen and pelvis with oral and intravenous contrast COMPARISON: None. FINDINGS: There are small bilateral pleural effusions measuring approximately 2 cm posteriorly and inferiorly in the midline. There is basilar atelectasis. The gallbladder has been removed. There is fatty infiltration of the liver. Nonspecific hypodense area in the medial spleen. Spleen is not enlarged. Normal pancreas and adrenal glands. No renal masses. No hydronephrosis. No aortic aneurysm. Moderate prominent atherosclerosis. No bowel obstruction. There are scattered colonic diverticula. No inflammation about the cecum. There is a moderate amount of free fluid in the pelvis. The uterus has been removed. No pelvic mass. There is a Jain catheter in the urinary bladder. There is moderate scoliosis with moderate degenerative changes in the lumbar spine. IMPRESSION: 1.Small pleural effusions 2.Cholecystectomy 3.Mild fatty infiltration of the liver 4.Atherosclerosis 5.Hysterectomy with free fluid in the pelvis 6.Diverticulosis 7.Scoliosis with degenerative spine changes 8.small hypodense nonspecific area in the medial spleen measuring less than 2 cm. This exam was performed using automated exposure control, adjustment of mA or kV according to patient size, and/or use of iterative reconstruction technique. Electronically signed by Kevon Dixon 11/27/2018 10:56 AM
[2018-11-27] MEDS: POTASSIUM CHLORIDE 20 MEQ, MAGNESIUM SULFATE 2 GM, THIAMINE 100 MG, FOLIC ACID 1 MG, M.... IV SCH ×6 (11:15)
[2018-11-27] MEDS ORDERED: ATIVAN IV PRN (11:57)
[2018-11-27] MEDS ORDERED: GENTAMICIN IV PER PHARMACY MISC SCH (12:00)
--- NOTE | 2018-11-27 12:41 | PROGRESS NOTE ---
DATE: 11/27/2018 SUBJECTIVE: Patient has no focal complaints. OBJECTIVE: Vital Signs: Blood pressure is 131/69, heart rate of 82, respiratory rate 26, temperature 98.3. Reportedly had a temp of 101 though this morning. I do not see it documented yet, though. Cardiovascular: Regular rate and rhythm. Pulmonary: Bilateral breath sounds. Clear to auscultation. GI: Soft, nontender, nondistended. Bowel sounds are positive. LABORATORY DATA: White count is down to 5, hemoglobin and hematocrit 10 and 31, platelets 100. AST and ALT are 35 and 72. Coags are okay. Urine culture has grown out E coli and she has got positive blood cultures, which I am still waiting on the final identification there. PROBLEM LIST: 1. Urinary tract infection with bacteremia, presumably the same source. She is on Zosyn. I am going to add gentamicin just until the bacteremia clears. Her CT did not show any evidence of abscess or even pyelo per se, so she seems to be doing okay, patient is doing in stable. 2. Diverticulosis. Stable currently. 3. Fatty liver related to chronic alcohol use. Numbers are slowly improving. DISPOSITION: Pending her clinical status, I am going to hold her Librium because she seems a bit over-sedated. We will leave her on some Ativan as needed and see how she does. Disposition again pending how she does overall. cc: Maksim Venegas MD
[2018-11-27] MEDS ORDERED: GENTAMICIN IV SCH (13:00)
[2018-11-27] MEDS ORDERED: NS IV SCH (13:00)
[2018-11-27] MEDS ORDERED: GENTAMICIN 300 MG in NS 150 ML IV SCH (13:00)
[2018-11-27 13:29] LABS: HEPATITIS PROFILE ACUTE SEE COMMENTS
[2018-11-27] MEDS ORDERED: LIBRIUM PO SCH (21:00)
[2018-11-27] MEDS: SODIUM CHLORIDE 0.9% INJ SCH (21:28)
[2018-11-27] MEDS: PROTONIX IV SCH (21:28)
[2018-11-28] MEDS: ZOSYN 3.375 GM in NS 50 ML IV SCH ×2 (02:28→08:35)
[2018-11-28 05:15] LABS: BASO# 0.01 X1000 (0.0-0.2); BASO% 0.2 % (0.0-0.8); EOS# 0.07 X1000 (0.0-0.7); EOS% 1.2 % (0.0-10.0); HEMATOCRIT 28.4 % (37.0-47.0); HEMOGLOBIN 9.6 g/dL (12.0-16.0); IMM GRAN# 0.04 X1000 (0.0-0.04); IMM GRAN% 0.7 % (0.0-0.5); LYMPH# 0.68 X1000 (1.2-3.4); LYMPH% 11.5 % (20.5-51.1); MCH 31.2 PG (27-31); MCHC 33.8 g/dL (33-37); MCV 92.2 FL (81-99); MONO# 0.85 X1000 (0.11-0.59); MONO% 14.4 % (1.7-9.3); MPV 9.1 FL (7.4-10.4); NEUT# 4.27 X1000 (1.4-6.5); PLT 101 X1000 (130-400); RBC 3.08 XMIL (4.2-5.4); RDW 14.2 % (11.5-14.5); WBC 5.92 X1000 (4.8-10.8)
[2018-11-28 05:51] LABS: AGAP 13; ALBUMIN 2.4 g/dL (3.5-5.0); ALKALINE PHOSPHATASE 178 U/L (32-104); BUN 6 mg/dL (8-22); CALCIUM 8.4 mg/dL (8.8-10.2); CHLORIDE 108 mmol/L (98-107); COSMO 279; CREATININE 0.6 mg/dL (0.5-0.9); ESTIMATED GFR > 60; GLUCOSE 109 mg/dL (70-104); GOT 24 U/L (10-30); GPT 51 U/L (10-36); POTASSIUM 2.9 mmol/L (3.5-5.1); SODIUM 141 mmol/L (136-145); TCO2 21 mmol/L (25-35); TOTAL PROTEIN 5.2 g/dL (6.3-8.3)
[2018-11-28] MEDS: THYROID PO SCH (08:37)
[2018-11-28] MEDS: ZOLOFT PO SCH (08:37)
[2018-11-28] MEDS: POTASSIUM CHLORIDE 20 MEQ, MAGNESIUM SULFATE 2 GM, THIAMINE 100 MG, FOLIC ACID 1 MG, M.... IV SCH ×6 (09:34)
[2018-11-28] MEDS: TYLENOL PO PRN ×2 (12:30→22:02)
[2018-11-28] MEDS: HALDOL IV PRN (12:33)
[2018-11-28] MEDS: POTASSIUM CHLORIDE 20 MEQ/SWI 20 MEQ/100 ML IVPB IV SCH ×2 (12:40→15:48)
--- NOTE | 2018-11-28 12:59 | Diag Imaging Result Doc PS360 ---
EXAM: CHEST-1 VIEW 11/28/2018 HISTORY: pneumonia TECHNIQUE: Erect AP portable at 1211 COMMENT: There is increased interstitial opacity in the lung bases. The pleural effusion which was present on 11/26/2018 is no longer present heart size appears to be slightly enlarged. IMPRESSION: Pulmonary edema. Electronically signed by Silver Alcala 11/28/2018 12:57 PM
--- NOTE | 2018-11-28 13:23 | Diag Imaging Result Doc PS360 ---
MRI BRAIN W/WO CONTRAST - 11/28/2018 INDICATION: encephalopathy COMPARISON: None FINDINGS: There is no area of restricted diffusion. The ventricles and sulci are normal in size and contour. No intracranial mass or hemorrhage. No area of abnormal contrast enhancement. Midline structures including the optic chiasm and pituitary are normal. IMPRESSION: Negative exam. Electronically signed by Blayne Wade 11/28/2018 1:21 PM
[2018-11-28 13:33] LABS: AGAP 16; ALBUMIN 2.7 g/dL (3.5-5.0); ALKALINE PHOSPHATASE 196 U/L (32-104); BUN 6 mg/dL (8-22); CALCIUM 8.4 mg/dL (8.8-10.2); CHLORIDE 108 mmol/L (98-107); COSMO 281; CREATININE 0.6 mg/dL (0.5-0.9); ESTIMATED GFR > 60; GLUCOSE 101 mg/dL (70-104); GOT 31 U/L (10-30); GPT 55 U/L (10-36); POTASSIUM 3.7 mmol/L (3.5-5.1); SODIUM 142 mmol/L (136-145); TCO2 18 mmol/L (25-35); TOTAL PROTEIN 5.2 g/dL (6.3-8.3)
[2018-11-28] MEDS: ZYVOX 600 MG/D5W 600 MG/300 ML IVPB IV SCH (13:36)
[2018-11-28] MEDS: MAXIPIME 2 GM in NS 100 ML IV SCH (13:38)
[2018-11-28] MEDS ORDERED: LASIX IV ONE (14:06)
--- NOTE | 2018-11-28 14:29 | PROGRESS NOTE ---
DATE: 11/28/2018 SUBJECTIVE: Patient still very confused. According to the family, I have discussed at length now that she has not had a drink since probably Monday. It is unclear from the family how much she drinks, although someone recorded 4 to 5 drinks a day. says she drinks a glass of vodka; he says a shot glass, but it seems like it is a bigger glass than that a day. Today she is still having some fevers. It is unclear what the source is, although I am suspicious she may have had developed a new pneumonia, a new source of infection. Repeat blood cultures have been ordered this morning and are pending. So far, are negative thankfully. Cardiovascular: Regular rate and rhythm. Pulmonary: Bilateral breath sounds. Clear to auscultation. GI: Soft, nontender, nondistended. Bowel sounds are positive. LABORATORY DATA: White count 5, hemoglobin and hematocrit 9 and 28, platelets of 101. BUN and creatinine are 6 and 0.6. AST and ALT are 31 and 55, alkaline phosphatase of 196. Her free T4 is 0.89. PROBLEM LIST: 1. Escherichia coli urinary tract infection with bacteremia. She has been on Zosyn which is appropriate therapy, but has persistent fevers. There may be a secondary infection. I put her on gentamicin, but she still has fevers. I am going to switch her to Zyvox and cefepime pending Infectious Disease input. She does not have pyelo or abscess, but she may be developing a right lower lobe infiltrate. So, it is certainly possible she has a new pneumonia having been here several days. 2. Diverticulosis is stable. 3. 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 Her liver numbers are overall improving. 4. Persistent encephalopathy. It has been a little less than a week. I have stopped her Librium in case this may be contributing to her confusion. We have done an MRI which was negative as I anticipated. Neurology has been consulted. We appreciate their input. I am going to try to hold everything sedating, except intermittent Haldol as she is having very significant confusion. 5. Hypokalemia. Will supplement and follow. 6. Hypothyroidism. We will continue Synthroid. She appears to be undertreated. DISPOSITION: Pending her clinical status, we will continue to follow. Family has requested transfer. We have attempted to get her transferred to [place], but there is no bed available across [facility], but their preference is to go to [facility]. We will re-evaluate tomorrow for transfer. cc: Maksim Venegas MD
[2018-11-28] MEDS: CLINIMIX E 4.25%-5% SOLUTION 1,000 ML IV SCH (14:38)
[2018-11-28 15:24] LABS: AGAP 10; ALBUMIN 2.3 g/dL (3.5-5.0); ALKALINE PHOSPHATASE 157 U/L (32-104); BUN 6 mg/dL (8-22); CALCIUM 8.3 mg/dL (8.8-10.2); CHLORIDE 108 mmol/L (98-107); COSMO 279; CREATININE 0.6 mg/dL (0.5-0.9); ESTIMATED GFR > 60; GLUCOSE 165 mg/dL (70-104); GOT 22 U/L (10-30); GPT 45 U/L (10-36); POTASSIUM 3.1 mmol/L (3.5-5.1); SODIUM 139 mmol/L (136-145); TCO2 22 mmol/L (25-35)
[2018-11-28 17:21] LABS: BILIRUBIN URINE NEGATIVE (NEGATIVE); BLOOD URINE TRACE (NEGATIVE); CLARITY CLEAR (CLEAR); COLOR YELLOW; GLUCOSE URINE NEGATIVE (NEGATIVE); KETONE URINE NEGATIVE (NEGATIVE); LEUKOCYTES URINE NEGATIVE (NEGATIVE); NITRITE URINE NEGATIVE (NEGATIVE); PROTEIN URINE NEGATIVE (NEGATIVE); UROBILINOGEN URINE NORMAL
[2018-11-28 17:23] LABS: URINE BACTERIA 1+ /HFP; URINE CAST NONE SEEN /LPF; URINE CRYSTAL NONE SEEN /HPF; URINE EPITHELIAL CELLS <10 /HPF (<10); URINE RBC <10 /HPF (<10); URINE SOURCE CATH; URINE YEAST NONE SEEN /HPF
[2018-11-28] MEDS ORDERED: CALMOSEPTINE OINTMENT TOP PRN (20:12)
[2018-11-28] MEDS: VIMPAT PO SCH (20:31)
[2018-11-28] MEDS: SODIUM CHLORIDE 0.9% INJ SCH (20:31)
[2018-11-28] MEDS: PROTONIX IV SCH (20:31)
--- NOTE | 2018-11-28 22:42 | CONSULTATION ---
DATE OF CONSULTATION: 11/28/2018 REASON FOR CONSULTATION: Altered mental status. HISTORY OF PRESENT ILLNESS: This is a 72-year-old, left-handed, female with a history of nocturnal seizures and hypertension. She was admitted with a urinary tract infection. History is from the patient, attentive and family at the bedside. Apparently near the end of last week she began to feel generally unwell. They suspect that she probably had some fevers then. She went to work on Monday but around 3:00 p.m. began feeling unwell again. On Monday she did not really want to get out of bed and did not have any energy and so they brought her in for evaluation. She was diagnosed with a urinary tract infection with bacteremia. Additionally, she had acute kidney injury and elevated liver enzymes on admission. Both of those have shown improvement during her stay. On admission, she was alert and coherent. About 1- 2 days after admission, she began to have grogginess and waxing/waning confusion, possibly some hallucinations. She has had somewhat persistent fevers and her antibiotics have been changed. She has a history of drinking an uncertain amount of vodka daily. She reports knowing in the past that her liver enzymes have been elevated and, she was told that she drinks too much then. She was placed on delirium tremens prophylaxis with Librium and was receiving lorazepam p.r.n. Those medications were discontinued yesterday. The family reports it is worse when she has a fever. There have not been any witnessed seizures. MRI of the brain performed with and without contrast today did not show acute findings. The reports nocturnal seizures starting in the spring of last year. Her last one was in April. She sees Dr. Aidan Arteaga in [place] and was started on low dose Vimpat which has been gradually tapered down. This past Monday she had an EEG as an outpatient and was advised to further reduce the Vimpat dosage to 25 mg at night. She has not been getting the Vimpat while here. PAST MEDICAL HISTORY: Includes: Hypertension. Nocturnal seizures starting last spring. The last event was in April. Hypothyroidism. PAST SURGICAL HISTORY: Bilateral cataract surgery, right shoulder surgery, and hemorrhoidectomy. FAMILY HISTORY: Her parents had strokes. No seizures. There are no seizures in siblings. Her son however does have a seizure disorder and follows with Dr. Hal Moon in [place]. SOCIAL HISTORY: Denies tobacco or illicit drugs. She drinks vodka daily. She reports 1 or 2 shots of vodka in the evening. Her says it is more like 3 shots. 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 She drives. She is and has children. ALLERGIES: Allergies are listed to codeine. HOME MEDICATIONS: Home medications were reviewed. I see listed Valium but actually they did not report this. Also, Vimpat currently 25 mg at night. She takes Ultram at times for her chronic low back pain, Zoloft, and blood pressure medications. REVIEW OF SYSTEMS: A balance of 10 was conducted and is otherwise negative except that detailed in the HPI. PHYSICAL EXAMINATION: Vital Signs: T-max 100.2; currently afebrile at 98.3. Blood pressure 164/82; 99/59 on admission. Pulse 60s, respirations 27, and oxygen saturation 99% on room air. General: Ms. Love is supine in bed. The family is at the bedside. She is in no acute distress. She appears to be resting with her eyes closed. She is easily woken to verbal stimulation. Mental Status: She regards, she is oriented fully. She was off by 1 day on today's date and said the 29th when it is the 30th. She follows simple and complex commands. She is groggy and rarely requires repeated stimulation to attend. She is aware enough such that she can tell me historical details and her medications including the dose of her Vimpat. Pupils are equal, round, and reactive to light. Gaze is conjugate and forward. Extraocular movements are intact. She has limited up gaze bilaterally. Visual garcia intact to direct confrontational testing. She can hear. Face is symmetric with equal activation. Facial sensation is reported intact. Tongue is midline. Palate elevates symmetrically. Shoulders shrug is full. Motor Exam: She has some limitations of the left upper extremity due to a painful left shoulder and that is not new. Her strength appears to be symmetric and preserved in the upper and lower extremities. She reports symmetric sensation to light touch in the arms and legs. Finger to nose was intact. Rapid alternating movement were intact. I did not see any adventitious movements. Reflexes were diminished symmetrically throughout. No clonus. Plantar response is downgoing. DIAGNOSTICS: MRI of the brain with and without contrast was personally reviewed with no acute findings. LABS: White count was 14 on admission; currently normal. Platelets 101. Sodium 134 on admission; currently normal. BUN 30 on admission; currently 6. Creatinine 1.5 on admission; currently normal. Calcium 8.3. Magnesium normal. AST and ALT were above 300 on admission and today at 22 and 45 respectively. Ammonia 16. There is E. coli in the urine and in the blood. ASSESSMENT AND PLAN: Delirium, global encephalopathy, multifactorial. Possible contributing factors include alcohol withdrawal and perhaps now a component of lingering sedative effects in the setting of recent reduced kidney and liver function, UTI with bacteremia. Normal contrasted MRI of the brain as well as her current state of being oriented and able to follow exams and provide some history is reassuring. I would continue treatment of her underlying medical conditions as you are doing. I am going to order a routine EEG. I have also restarted her home albeit low dose Vimpat at 25 mg nightly. If she does not improve or if the fever is not under control then I would consider a lumbar puncture. Frequent reorienting when needed. Thank you for the consultation. cc: Lucretia Swain MD MTDD
[2018-11-29] MEDS: MAXIPIME 2 GM in NS 100 ML IV SCH ×3 (00:21→23:42)
[2018-11-29] MEDS: ZYVOX 600 MG/D5W 600 MG/300 ML IVPB IV SCH ×3 (00:22→23:42)
[2018-11-29] MEDS: CLINIMIX E 4.25%-5% SOLUTION 1,000 ML IV SCH (05:19)
[2018-11-29 05:57] LABS: BASO# 0.02 X1000 (0.0-0.2); BASO% 0.3 % (0.0-0.8); EOS# 0.09 X1000 (0.0-0.7); EOS% 1.3 % (0.0-10.0); HEMATOCRIT 33.7 % (37.0-47.0); HEMOGLOBIN 11.2 g/dL (12.0-16.0); IMM GRAN# 0.08 X1000 (0.0-0.04); IMM GRAN% 1.1 % (0.0-0.5); LYMPH# 1.65 X1000 (1.2-3.4); LYMPH% 23.6 % (20.5-51.1); MCH 30.9 PG (27-31); MCHC 33.2 g/dL (33-37); MCV 92.8 FL (81-99); MONO# 0.76 X1000 (0.11-0.59); MONO% 10.9 % (1.7-9.3); MPV 9.3 FL (7.4-10.4); NEUT% 62.8 % (42.2-75.2); PLT 123 X1000 (130-400); RBC 3.63 XMIL (4.2-5.4); RDW 14.3 % (11.5-14.5)
[2018-11-29 05:59] LABS: ALBUMIN 2.5 g/dL (3.5-5.0); ALKALINE PHOSPHATASE 170 U/L (32-104); DIRECT BILIRUBIN < 0.20 mg/dL (0.00-0.20); GOT 22 U/L (10-30); GPT 45 U/L (10-36); TOTAL PROTEIN 5.8 g/dL (6.3-8.3)
[2018-11-29] MEDS: SYNTHROID PO SCH (06:23)
[2018-11-29] MEDS: TYLENOL PO PRN (06:23)
[2018-11-29 08:35] LABS: SED RATE 115 mm/hr (0-20)
[2018-11-29] MEDS ORDERED: OFIRMEV 1000 MG/ISOTONIC SOLN 1,000 MG/100 ML BOTTLE IV PRN (10:06)
[2018-11-29 11:16] LABS: C REACTIVE PROT QUANT 137.24 mg/L (0.00-5.00)
[2018-11-29] MEDS: ZOLOFT PO SCH (11:48)
[2018-11-29] MEDS ORDERED: CLINIMIX E 4.25%-5% SOLUTION 1,000 ML IV SCH (12:00)
--- NOTE | 2018-11-29 16:31 | PROGRESS NOTE ---
DATE: 11/29/2018 LOCATION: [facility] bed #3. SUBJECTIVE: Ms. Love was seen by Dr. Swain yesterday for initial neurology evaluation. Today, she is much more alert. Workup includes brain MRI done with and without contrast showing nothing remarkable. Liver enzymes are mildly elevated (she reports being told of elevated liver enzymes by primary physician in the past). There is reported history of nocturnal episodes thought to be possible seizure, followed by Dr. Arteaga in [place] with recently decreasing Vimpat dose. There is apparent history of significant ethanol use. Today, we discussed her benzodiazepine history and based on her report, which I am not certain is completely valid, she has been taking only 1 diazepam tablet 10 mg per week. She denies illicit drug use and substance abuse. Daughter was present during interview and examination and corroborated some of Ms. Love's reports. She had fever earlier this admission. Temperature was recorded 102.1 early this morning and 98.1 at midday today. WBC count was initially 14,000 and later 7,000. Chest x- ray reports are noted. Sedimentation rate 115. EEG has been ordered. OBJECTIVE: On my exam, Ms. Love is awake, alert, attentive. She answered questions correctly and appropriately. Answers were sometimes a little bit slow but not incorrect or inappropriate. Speech is not significantly dysarthric right now. Language function is intact on bedside testing. Remote memory is good. 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 Head is unremarkable. Neck is supple without meningismus. Visual garcia are full to confrontational finger counting. Extraocular movements are full. Facial motility is symmetric. Tongue is midline. Gag is intact. She has chronic mechanical problem with the left shoulder. She did well with right finger-to- nose. Tone is symmetric in the limbs. Power is good on bedside testing in the limbs. I did not test her gait. IMPRESSION: Global encephalopathy appears to be resolved or almost resolved now. Reason for the encephalopathy is not certain but seems consistent with intoxication/withdrawal syndrome. I do not see evidence of increased intracranial pressure. She has been afebrile in recent hours. WBC count has normalized and she is afebrile now and there is no clinical or imaging evidence of VP RESPIRATORY infection. I do not think we need to do lumbar puncture right now. I do not have any urgent suggestion from a neurologic standpoint. I encouraged her to be careful with her medicines and to keep follow up with her other doctors after discharge. Thanks for asking Neurology to see Ms. Love. I will be glad to see her again if current course towards recovery does not continue. cc: MD SANTINO Maldonado III
[2018-11-29] MEDS ORDERED: TYLENOL WITH CODEINE #3 PO PRN (17:27)
[2018-11-29] MEDS ORDERED: EPIFOAM FOAM TOP PRN (17:28)
[2018-11-29 17:35] LABS: INFLUENZA A NEGATIVE (NEGATIVE); INFLUENZA B NEGATIVE (NEGATIVE)
[2018-11-29 18:40] LABS: AGAP 11; ALBUMIN 2.4 g/dL (3.5-5.0); ALKALINE PHOSPHATASE 146 U/L (32-104); BUN 12 mg/dL (8-22); CALCIUM 8.7 mg/dL (8.8-10.2); CHLORIDE 104 mmol/L (98-107); COSMO 281; CREATININE 0.6 mg/dL (0.5-0.9); ESTIMATED GFR > 60; GLUCOSE 140 mg/dL (70-104); GOT 23 U/L (10-30); GPT 38 U/L (10-36); POTASSIUM 2.9 mmol/L (3.5-5.1); SODIUM 140 mmol/L (136-145); TCO2 25 mmol/L (25-35); TOTAL PROTEIN 5.5 g/dL (6.3-8.3)
--- NOTE | 2018-11-29 18:58 | Diag Imaging Result Doc PS360 ---
EXAM: CT THORAX W/CONTRAST INDICATION: persistent fevers TECHNIQUE: This exam was performed using automated exposure control, adjustment of mA or kV according to patient size, and/or use of iterative reconstruction technique. COMPARISON: None. FINDINGS: There are small bilateral pleural effusions and bibasilar atelectasis. There is mild bilateral interstitial thickening suggesting mild edema. There is a calcified granuloma in the left lower lobe. There are calcified mediastinal and left hilar lymph nodes indicating prior granulomatous disease. There are calcified mediastinal and hilar lymph nodes indicating prior granulomatous disease. The heart is borderline prominent. There is extensive coronary artery atherosclerotic calcification. Review of the upper abdomen reveals mildly heterogeneous enhancement of the left kidney, which is not appreciated on a previous recent abdominal CT. Consider pyelonephritis. Please correlate clinically. IMPRESSION: 1.Bilateral small pleural effusions and bibasilar atelectasis. 2.Suggestion of mild interstitial edema. 3.Mildly heterogeneous enhancement of the left kidney, which can indicate pyelonephritis. Please correlate clinically. Electronically signed by Wes Toney 11/29/2018 6:56 PM
[2018-11-29] MEDS: VIMPAT PO SCH (20:33)
[2018-11-29] MEDS: HALDOL IV PRN (20:35)
[2018-11-29] MEDS: PROTONIX IV SCH (20:35)
[2018-11-29] MEDS: SODIUM CHLORIDE 0.9% INJ SCH (20:55)
[2018-11-30 06:41] LABS: BASO# 0.01 X1000 (0.0-0.2); BASO% 0.1 % (0.0-0.8); EOS# 0.15 X1000 (0.0-0.7); EOS% 2.2 % (0.0-10.0); HEMATOCRIT 27.5 % (37.0-47.0); IMM GRAN# 0.08 X1000 (0.0-0.04); IMM GRAN% 1.2 % (0.0-0.5); LYMPH# 1.27 X1000 (1.2-3.4); LYMPH% 18.6 % (20.5-51.1); MCH 30.4 PG (27-31); MCHC 32.7 g/dL (33-37); MCV 92.9 FL (81-99); MONO# 0.52 X1000 (0.11-0.59); MONO% 7.6 % (1.7-9.3); MPV 9.3 FL (7.4-10.4); NEUT# 4.79 X1000 (1.4-6.5); NEUT% 70.3 % (42.2-75.2); PLT 155 X1000 (130-400); RBC 2.96 XMIL (4.2-5.4); RDW 13.9 % (11.5-14.5); WBC 6.82 X1000 (4.8-10.8)
[2018-11-30] MEDS: SYNTHROID PO SCH (06:50)
[2018-11-30 06:59] LABS: MAGNESIUM 1.7 mg/dL (1.5-2.7)
[2018-11-30 07:57] LABS: ANISOCYTOSIS 1+; LYMPHS 10 % (21-51); MONO 6 % (1-9); SEGS 84 % (42-75)
[2018-11-30] MEDS: ZOLOFT PO SCH (08:12)
[2018-11-30] MEDS ORDERED: LASIX IV ONE (10:17)
[2018-11-30 11:19] LABS: AGAP 12; BUN 14 mg/dL (8-22); CALCIUM 8.7 mg/dL (8.8-10.2); CHLORIDE 102 mmol/L (98-107); COSMO 283; CREATININE 0.6 mg/dL (0.5-0.9); ESTIMATED GFR > 60; GLUCOSE 115 mg/dL (70-104); POTASSIUM 2.9 mmol/L (3.5-5.1); SODIUM 141 mmol/L (136-145); TCO2 27 mmol/L (25-35)
[2018-11-30] MEDS: MAXIPIME 2 GM in NS 100 ML IV SCH ×2 (12:00→23:11)
[2018-11-30] MEDS: ZYVOX 600 MG/D5W 600 MG/300 ML IVPB IV SCH ×2 (13:00→23:11)
[2018-11-30] MEDS ORDERED: LASIX ONE (13:37)
[2018-11-30] MEDS: CLINIMIX E 4.25%-5% SOLUTION 1,000 ML IV SCH (13:43)
[2018-11-30] MEDS: ULTRAM PO PRN ×2 (14:48→21:41)
--- NOTE | 2018-11-30 14:55 | PROGRESS NOTE ---
DATE: 11/30/2018 SUBJECTIVE: Ms. Love is awake, alert, attentive, bright, cheerful, appropriate. I believe that her encephalopathy has completely resolved. I do not have any new suggestion from neurologic standpoint. I encouraged her to keep follow up with Dr. Arteaga after discharge, and to make sure she takes her medications as directed. Thanks for asking Neurology to see Ms. Love. cc: Obinna Alvarez III, MD
[2018-11-30] MEDS ORDERED: KLOR-CON PO ONE (20:53)
[2018-11-30] MEDS: VIMPAT PO SCH (21:41)
[2018-11-30] MEDS: PROTONIX PO SCH (21:42)
[2018-11-30] MEDS: POTASSIUM CHLORIDE 20 MEQ/SWI 20 MEQ/100 ML IVPB IV SCH ×2 (21:42→23:12)
[2018-12-01] MEDS: CLINIMIX E 4.25%-5% SOLUTION 1,000 ML IV SCH ×2 (02:43→20:18)
[2018-12-01] MEDS: SYNTHROID PO SCH (06:24)
[2018-12-01 06:52] LABS: AGAP 11; BUN 17 mg/dL (8-22); CALCIUM 9.1 mg/dL (8.8-10.2); CHLORIDE 103 mmol/L (98-107); COSMO 282; CREATININE 0.6 mg/dL (0.5-0.9); ESTIMATED GFR > 60; GLUCOSE 118 mg/dL (70-104); SODIUM 140 mmol/L (136-145); TCO2 27 mmol/L (25-35)
[2018-12-01 07:02] LABS: BASO# 0.02 X1000 (0.0-0.2); BASO% 0.2 % (0.0-0.8); EOS# 0.22 X1000 (0.0-0.7); EOS% 2.7 % (0.0-10.0); HEMATOCRIT 30.4 % (37.0-47.0); IMM GRAN# 0.14 X1000 (0.0-0.04); IMM GRAN% 1.7 % (0.0-0.5); LYMPH# 1.57 X1000 (1.2-3.4); LYMPH% 19.1 % (20.5-51.1); MCHC 32.9 g/dL (33-37); MCV 94.1 FL (81-99); MONO# 0.48 X1000 (0.11-0.59); MONO% 5.8 % (1.7-9.3); MPV 9.4 FL (7.4-10.4); NEUT# 5.79 X1000 (1.4-6.5); NEUT% 70.5 % (42.2-75.2); PLT 202 X1000 (130-400); RBC 3.23 XMIL (4.2-5.4); WBC 8.22 X1000 (4.8-10.8)
[2018-12-01] MEDS ORDERED: HALDOL IV PRN (08:00)
[2018-12-01] MEDS: ZOLOFT PO SCH (09:17)
[2018-12-01 09:58] LABS: ANTINEUTROPHIL CYTOPLASMIC AB SEE COMMENTS
[2018-12-01] MEDS: MAXIPIME 2 GM in NS 100 ML IV SCH ×2 (11:01→23:03)
[2018-12-01] MEDS: ZYVOX 600 MG/D5W 600 MG/300 ML IVPB IV SCH (11:10)
[2018-12-01] MEDS: PROTONIX PO SCH (20:17)
[2018-12-01] MEDS: VIMPAT PO SCH (20:17)
[2018-12-01] MEDS: ULTRAM PO PRN (20:28)
--- NOTE | 2018-12-01 23:31 | PROGRESS NOTE ---
DATE: 12/01/2018 SUBJECTIVE: Patient has no focal complaints. She is sitting up in bed. She is not eating a bunch but she is doing okay. Blood pressure is 118/61, heart rate of 82, respiratory rate 25, T- max was 99.9 degrees.Cardiovascular: Regular rate and rhythm. Pulmonary: Bilateral breath sounds. Clear to auscultation. GI: Was soft, nontender, nondistended, bowel sounds were positive EX: no clubbing or cyanosis. She does have a fairly loud kind of blowing murmur. LABORATORY DATA: White count is 8, hemoglobin and hematocrit 10 and 30, platelets 202,000, basic was normal. PROBLEM LIST: 1. Escherichia coli urinary tract infection with bacteremia. She is on Zosyn and Zyvox. I think I will probably stop her Zyvox today because she is looking fine. There is no major issues there. In any case, patient is doing better overall, she likely had pyelo which is why she had persistent fevers. She is still not eating a whole bunch may put her on some appetite stimulation. I have ordered some Ensure with her meals. She is on Clinimix. 2. Hypothyroidism. Will continue treatment and follow. 3. Alcohol withdrawal syndrome. She is off her medications. Her encephalopathy has resolved. 4. Hypokalemia, that is also resolved. DISPOSITION: Hopefully home soon. I think she is stable enough to go to the floor now. cc: Maksim Venegas MD [facility]
[2018-12-02] MEDS: ZYVOX 600 MG/D5W 600 MG/300 ML IVPB IV SCH (00:17)
[2018-12-02] MEDS: SYNTHROID PO SCH (06:35)
[2018-12-02] MEDS: CLINIMIX E 4.25%-5% SOLUTION 1,000 ML IV SCH ×3 (06:35→18:42)
[2018-12-02 07:23] LABS: BASO# 0.02 X1000 (0.0-0.2); BASO% 0.3 % (0.0-0.8); EOS# 0.18 X1000 (0.0-0.7); EOS% 2.3 % (0.0-10.0); HEMATOCRIT 30.2 % (37.0-47.0); HEMOGLOBIN 9.8 g/dL (12.0-16.0); IMM GRAN# 0.13 X1000 (0.0-0.04); IMM GRAN% 1.6 % (0.0-0.5); LYMPH# 1.34 X1000 (1.2-3.4); LYMPH% 16.9 % (20.5-51.1); MCH 30.6 PG (27-31); MCHC 32.5 g/dL (33-37); MCV 94.4 FL (81-99); MONO# 0.48 X1000 (0.11-0.59); MPV 9.4 FL (7.4-10.4); NEUT# 5.79 X1000 (1.4-6.5); NEUT% 72.9 % (42.2-75.2); PLT 233 X1000 (130-400); RDW 13.9 % (11.5-14.5); WBC 7.94 X1000 (4.8-10.8)
[2018-12-02 07:37] LABS: AGAP 9; BUN 17 mg/dL (8-22); CALCIUM 9.1 mg/dL (8.8-10.2); CHLORIDE 104 mmol/L (98-107); COSMO 280; CREATININE 0.6 mg/dL (0.5-0.9); ESTIMATED GFR > 60; GLUCOSE 116 mg/dL (70-104); SODIUM 139 mmol/L (136-145); TCO2 26 mmol/L (25-35)
[2018-12-02] MEDS: ZOLOFT PO SCH (11:03)
[2018-12-02] MEDS: MAXIPIME 2 GM in NS 100 ML IV SCH ×2 (11:03→22:30)
--- NOTE | 2018-12-02 18:38 | PROGRESS NOTE ---
DATE: 12/02/2018 SUBJECTIVE: She looks much better. She is still very weak and she is still not eating a whole bunch but better. Blood pressure 141/75, heart rate of 87, respiratory 16, temperature was a 100 degrees oral. Cardiovascular: Regular rate and rhythm. Pulmonary: Bilateral breath sounds, clear to auscultation. GI: Was soft, nontender, nondistended. Bowel sounds are positive. LAB: White count 7, hemoglobin and hematocrit 9 and 30, platelets of 233,000. Basic was normal. PROBLEM LIST: 1. Escherichia coli pyelonephritis with bacteremia. She is currently on cefepime. She is not on Zosyn. She is on cefepime. I stopped Zyvox because she had been afebrile now she had a little bit of temperature today but will watch that, she has pyelo that may explain persistent temperatures. Imaging has not revealed any abscesses or anything of that sort. We will continue follow and her repeat blood cultures are negative. She has no hardware so I do not think she necessarily needs long-term IV antibiotics. 2. Hypothyroidism. Will continue treatment and follow. 3. Alcohol withdrawal syndrome. She is stable off medications. She did not tolerate benzodiazepines very well. She got probably some sort of reverse effect from it because she got very drowsy, agitated, delirious. 4. Hypokalemia that is improved. 5. Disposition. She is still very weak. Her states she cannot get up on her own so she may end up needing some form of rehab. Her PT note states that she had poor standing balance. She walked 10 feet although minimal assistance with a front wheel walker. They recommend possibly a home health plan so will see. We will get social work to evaluate for rehab options tomorrow. Disposition pending her clinical status. We will continue to follow. cc: Maksim Venegas MD
[2018-12-02] MEDS: ULTRAM PO PRN (18:55)
[2018-12-02] MEDS: VIMPAT PO SCH (22:30)
[2018-12-02] MEDS: PROTONIX PO SCH (22:31)
[2018-12-03] MEDS: CLINIMIX E 4.25%-5% SOLUTION 1,000 ML IV SCH ×2 (06:03→19:34)
[2018-12-03] MEDS: SYNTHROID PO SCH (06:03)
[2018-12-03 07:21] LABS: BASO# 0.02 X1000 (0.0-0.2); BASO% 0.2 % (0.0-0.8); EOS# 0.13 X1000 (0.0-0.7); EOS% 1.6 % (0.0-10.0); HEMATOCRIT 29.2 % (37.0-47.0); HEMOGLOBIN 9.5 g/dL (12.0-16.0); IMM GRAN# 0.15 X1000 (0.0-0.04); IMM GRAN% 1.8 % (0.0-0.5); MCH 30.6 PG (27-31); MCHC 32.5 g/dL (33-37); MCV 94.2 FL (81-99); MONO# 0.46 X1000 (0.11-0.59); MONO% 5.5 % (1.7-9.3); MPV 9.2 FL (7.4-10.4); NEUT# 6.06 X1000 (1.4-6.5); NEUT% 72.9 % (42.2-75.2); PLT 268 X1000 (130-400); RDW 13.8 % (11.5-14.5); WBC 8.32 X1000 (4.8-10.8)
[2018-12-03 07:28] LABS: AGAP 12; BUN 20 mg/dL (8-22); CALCIUM 9.2 mg/dL (8.8-10.2); CHLORIDE 102 mmol/L (98-107); COSMO 280; CREATININE 0.6 mg/dL (0.5-0.9); ESTIMATED GFR > 60; GLUCOSE 101 mg/dL (70-104); POTASSIUM 4.2 mmol/L (3.5-5.1); SODIUM 139 mmol/L (136-145); TCO2 25 mmol/L (25-35)
[2018-12-03] MEDS: MAXIPIME 2 GM in NS 100 ML IV SCH ×2 (09:42→21:36)
[2018-12-03] MEDS: ZOLOFT PO SCH (09:42)
[2018-12-03] MEDS: ULTRAM PO PRN (19:08)
[2018-12-03] MEDS: VIMPAT PO SCH (21:36)
[2018-12-03] MEDS: PROTONIX PO SCH (21:36)
--- NOTE | 2018-12-03 22:58 | PROGRESS NOTE ---
DATE: 12/03/2018 SUBJECTIVE: Patient notes overall she is feeling better however she still has not really been out of bed, still having generalized weakness. PHYSICAL: Temperature 98.5, pulse 76, respiratory 20, BP 119/65 .General: Patient is currently in no respiratory distress. HEENT: Normocephalic. Neck: Supple. CV: Regular rate. Chest: Clear. Abdomen: Soft. Extremities: Moves all extremities. Neuro: No changes. ASSESSMENT: 1. Escherichia coli pyelonephritis . 2. Escherichia coli bacteremia . 3. Hypothyroidism. 4. Chronic alcohol syndrome. 5. Adult failure to thrive. PLAN: Will continue antibiotics, will attempt to discuss with her rehab that she certainly is too weak to be able go home and will follow. cc: Scot Sanabria MD
[2018-12-04] MEDS: SYNTHROID PO SCH (06:04)
[2018-12-04 08:03] LABS: AGAP 12; BUN 17 mg/dL (8-22); CALCIUM 9.6 mg/dL (8.8-10.2); CHLORIDE 100 mmol/L (98-107); COSMO 276; CREATININE 0.7 mg/dL (0.5-0.9); ESTIMATED GFR > 60; GLUCOSE 102 mg/dL (70-104); SODIUM 137 mmol/L (136-145); TCO2 25 mmol/L (25-35)
[2018-12-04] MEDS: ZOLOFT PO SCH (09:32)
[2018-12-04] MEDS: MAXIPIME 2 GM in NS 100 ML IV SCH ×2 (09:32→23:31)
[2018-12-04] MEDS: PROTONIX PO SCH (21:26)
[2018-12-04] MEDS: ULTRAM PO PRN (21:26)
[2018-12-04] MEDS: VIMPAT PO SCH (21:27)
--- NOTE | 2018-12-04 23:18 | PROGRESS NOTE ---
DATE: 12/04/2018 SUBJECTIVE: Patient notes that she is feeling better. She was actually able to ambulate some with a walker and physical therapy. PHYSICAL EXAMINATION: Vital Signs: Temperature 97.9, pulse 77, respiratory rate 16, blood pressure 128/65. General: Patient is awake, currently in no distress. HEENT: Normocephalic. Neck: Supple. Cardiovascular: Regular rate. Chest: Clear. Abdomen: Soft. Extremities: Moves all extremities. ASSESSMENT: 1. E. coli pyelonephritis continues to improve. 2. E. coli bacteremia continues to improve. 3. Sepsis, resolved, from her E. coli urinary tract infection. 4. Hypothyroidism. 5. Anemia. 6. Hypokalemia, resolved. 7. Chronic alcohol withdrawal. PLAN: Overall, the patient has improved. She is able to ambulate some with physical therapy. Hopefully, she can discharge home soon with home health. cc: Scot Sanabria MD
[2018-12-05] MEDS: SYNTHROID PO SCH (06:18)
[2018-12-05 08:00] VITALS: BP 127/54
[2018-12-05] MEDS ORDERED: LEVAQUIN PO SCH (09:00)
[2018-12-05] MEDS: ZOLOFT PO SCH (09:06)
--- NOTE | 2018-12-05 11:41 | EEG REPORT ---
DATE: 11/29/2018 EEG #: [id number]. COMMENT: This is a digitally recorded EEG done portably in the ICU on a 71-year-old patient with altered mental state. FINDINGS: During waking, poorly sustained 7-9 Hz rhythm is present posteriorly with uncertain reactivity to eye opening. Background contains polymorphic and rhythmic theta frequencies over the frontal and central regions symmetrically. Beta rhythm is present intermittently, mostly central. Photic stimulation did not significantly alter the record. Hyperventilation was not done. Drowsing occurred with appearance of more generalized slowing. Stage II sleep was not recorded. No definite epileptiform discharge was identified. INTERPRETATION: Abnormal EEG because of mild generalized slowing. CORRELATION: This is indicative of a diffuse encephalopathy and is nonspecific. The absence of epileptiform discharges on a single EEG does not exclude a clinical diagnosis of seizures, but there is nothing on this record to suggest the presence of a seizure disorder. cc: MD Lucretia Maldonado III, MD
--- NOTE | 2018-12-05 14:39 | DISCHARGE SUMMARY ---
ADMISSION DATE: 11/25/2018 DISCHARGE DATE: 12/05/2018 CONSULTS: 1. Dr. Lucretia Paul, Neurology. 2. Dr. Elier Lemus, Cardiology. DIAGNOSES: 1. Escherichia coli UTI. 2. Escherichia bacteremia. 3. Sepsis secondary to Escherichia coli UTI and bacteremia, resolved. 4. Hypothyroidism. 5. Anemia. 6. Hypokalemia. 7. Chronic alcohol withdrawal. 8. Adult failure to thrive. DIAGNOSTICS: 1. 11/24/2018. Chest x-ray revealed no pneumonia. 2. 11/25/2018. Left shoulder x-ray revealed no evidence of fracture or dislocation. 3. 11/26/2018. Chest x-ray revealed development of atelectasis or infiltrates in the right lung. 4. 11/27/2018. CT of the abdomen and pelvis revealed cholecystectomy, mild fatty infiltration of the liver, small pleural effusions, hysterectomy, diverticulosis, scoliosis with degenerative spine changes. 5. 11/28/2018. MRI of the brain revealed a negative exam. 6. 11/29/2018. EEG revealed abnormal EEG because of mild generalized slowing. 7. 11/29/2018. CT of the chest revealed bilateral small pleural effusions and bibasilar atelectasis, suggestion of mild interstitial edema and mild heterogeneous enhancement of the left kidney which can indicate pyelonephritis. 8. Microbiology: Blood cultures on admission revealed ESBL negative E coli. 9. Urine culture revealed ESBL negative E coli. 10. Repeat blood cultures on 11/28/2018 revealed no growth after 5 days. HOSPITAL COURSE: Ms. Love presented to the emergency room complaining of left shoulder and arm pain, along with generalized body aches. She was ultimately found to have E coli bacteremia as well as pyelonephritis. She was initially placed on Zosyn for antibiotic coverage. She has since been transitioned over to Levaquin. She was found to have acute hepatitis and hepatitis panel was nonreactive. She did state that she was taking Garcinia and on questioning, she had been taking Garcinia for quite some time and has not been taking it at the recommended dose. We did discuss that she needed to stop taking this and discuss further with her PCP. She was not forthcoming with her alcohol use on admission. She would not say when her last drink was or how much she drinks. A few hours after being admitted to the floor she began getting very agitated, heart rate went up, blood pressure increased, and she was noted to have tremors. She was moved to ICU and placed on a Librium taper and with alcohol withdrawal protocol. It was later found out that the patient drinks 5 to 6 shots of alcohol of vodka daily, sometimes more. Thankfully this has resolved. TSH was 5.12, with a free T4 of 0.89. Synthroid was started at her home dose as we are unsure that she was actually taking this medication, we started it at her home dose. She did have a creatinine of 1.5 on admission. After hydration, creatinine has been 0.6 to 0.7. Initially she was very weak, she was unable to get up on her own. With assistance she did have very poor standing balance. Physical Therapy did evaluate her and they recommended rehab. She did cooperate with Physical Therapy and she has started regaining some of her strength. She was evaluated by [facility]. She initially refused,with family members insistence she did agree to go and thankfully she is ready for discharge today. DISCHARGE VITAL SIGNS: Blood pressure is 127/54, heart rate of 77, respirations are 18, temperature is 98.6, O2 sats are 99%. PHYSICAL EXAMINATION: This is a 72-year-old female who is sitting up in a chair in no distress. Cardiovascular: Regular rate and rhythm. S1 and S2 are appreciated. Pulmonary : Breath sounds are clear. No increased work of breathing noted. Chest rises and falls, symmetric respiration. Gastrointestinal: Abdomen is soft, nontender, nondistended. Bowel sounds in all 4 quadrants. Neurologic: She is alert and oriented x 3. DISCHARGE MEDICATIONS: 1. Zoloft 50 mg p.o. daily. 2. Levothyroxine 50 mcg p.o. daily. 3. Levaquin 500 mg p.o. daily for 21 days. 4. Protonix 40 mg p.o. at bedtime. 5. Vimpat 25 mg p.o. at bedtime. 6. Zoloft 50 mg p.o. daily. 7. Lisinopril/hydrochlorothiazide 20/25 p.o. daily. 8. Benadryl 25 mg p.o. at bedtime. She is being discharged and transferred to rehab in stable condition with family members present. TIME SPENT: This is a greater than 30 minute discharge. Dictated by FRED Marino for Scot Sanabria MD This chart was documented by, FRED Marino and accurately reflects the services performed, treatment plan and medical decisions as attested by the providers signature Scot Sanabria MD. cc: FRED Marino MD [facility]
--- NOTE | 2018-12-06 00:48 | PROGRESS NOTE ---
DATE: 12/05/2018 SUBJECTIVE: Patient notes overall she is feeling better although she is still very weak and fatigued. PHYSICAL EXAMINATION: Vital Signs: Temperature 98.1 degrees, pulse 81, respiratory 24, BP 124/68. General: Patient is awake, alert. She is in no distress. Pleasant to talk with. HEENT: Normocephalic. Neck: Supple. CARDIOVASCULAR: Regular rate. Chest: Clear. Abdomen: Soft. Extremities: Moves all extremities. ASSESSMENT: 1. Escherichia coli pyelonephritis. 2. Escherichia coli bacteremia. 3. Hypothyroidism. 4. Alcohol withdrawal syndrome. 5. Acute adult failure to thrive. PLAN: We will continue patient in the hospital, we will hopefully transition to rehab over the next day or 2. We will transition to rehab when available. cc: Scot Sanabria MD
--- NOTE | 2018-12-09 22:49 | DISCHARGE SUMMARY ---
ADMISSION DATE: 11/25/2018 DISCHARGE DATE: 12/05/2018 ADDENDUM: Patient seen and examined by myself. Full note dictated and discussed with nurse practitioner. Patient was admitted to the hospital, diagnosed with UTI. Subsequently grew E coli as well as E coli in her blood. Thankfully, her recent blood count has been negative. Overall, she has improved and therefore will be discharged. Please see full note. cc: Scot Sanabria MD
== END 2018-12-05 17:23 | DRG 871 ==
LOC: P.ED 14:47 → P.MEDSURG 11-25 00:14 → SUATTDRO 11-25 00:14 → P.ICU 11-25 16:02 → P.MEDSURG 12-01 16:48
PROVIDERS: ATTEND Family Medicine
CPT/HCPCS: 51701; 70553; 71010; 71020; 71045; 71046; 71260; 73030; 74177; 76700; 80048; 80053; 80074; 80076; 80170; 81001; 82140; 82150; 82550; 82553; 82784; 83516; 83605; 83690; 83735; 84100; 84439; 84443; 84484; 85025; 85610; 85651; 85730; 86038; 86039; 86140; 86235; 87040; 87077; 87081; 87088; 87186; 87275; 87276; 87324; 87430; 87804; 93005; 93010; 93306; 94640; 94761; 94799; 95816; 96374; 96375; 97110; 97162; 97530; 99285; A9270; C8924; C8929; C9113; J0131; J0692; J1580; J1630; J1940; J2020; J2060; J2270; J2405; J2543; J3411; J3475; J3480; J7030; P9612; Q9957; Q9967; S0164